=== PATIENT | male | born 1985 | race Caucasian/White ===

== ENCOUNTER 2017-07-11 19:02 | Emergency (ER) | payer BC ==
[2017-07-11 20:02] VITALS: BP 124/77
[2017-07-11] MEDS ORDERED: Albuterol HFA INHALER* 8 gm MDI INH ONE (20:43)
--- NOTE | 2017-07-11 22:42 | UC ---
Respiratory Complaint HPI - HPI Summary HPI Summary: 31 y/o male with no PMH, no medications who presents with increased shortness of breath, difficulty breathing x 1 week. daughter with similar symptoms, dx'd with allergies. Patient states dry cough, no fever, chills, no N/V abdominal pain, ? decreased appetite. 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 symptoms increasing. - History of Current Complaint Chief Complaint: UCGeneralIllness Stated Complaint: COUGH Time Seen by Provider: 07/11/17 20:27 Hx Obtained From: Patient Onset/Duration: Gradual Onset, Lasting Weeks Timing: Constant Severity Initially: Moderate Severity Currently: Moderate Pain Intensity: 0 Pain Scale Used: 0-10 Numeric - Allergies/Home Medications Allergies/Adverse Reactions: Allergies Allergy/AdvReac Type Severity Reaction Status Date / Time No Known Allergies Allergy Verified 07/11/17 20:02 Home Medications: Home Medications Pseudoephedrine-Guaifenesin [Mucinex D] 2 tab PO ONCE PRN 07/11/17 [History Confirmed 07/11/17] PMH/Surg Hx/FS Hx/Imm Hx Previously Healthy: Yes Other History Of: Negative For: HIV, Hepatitis B, Hepatitis C - Surgical History Surgical History: None Surgery Procedure, Year, and Place: VASECTOMY - Family History Known Family History: Negative: Cardiac Disease, Renal Disease - Social History Alcohol Use: Occasionally Substance Use Type: None Smoking Status (MU): Never Smoked Tobacco Review of Systems Respiratory: Shortness Of Breath, Cough All Other Systems Reviewed And Are Negative: Yes Physical Exam Triage Information Reviewed: Yes Appearance: No Pain Distress, Well-Nourished, Ill-Appearing - mild Vital Signs: Initial Vital Signs Temp 98.7 F 07/11/17 19:57 Pulse 85 07/11/17 19:57 Resp 16 07/11/17 19:57 BP 124/77 07/11/17 19:57 Pulse Ox 99 07/11/17 19:57 Vital Signs Reviewed: Yes Eyes: Positive: Conjunctiva Clear ENT: Positive: Pharyngeal erythema - minimal, TMs normal - cermun impaction R ear, currette gross amount however unable to visualize fully. No pain/ tenderness with currette. Neck: Positive: Supple, Nontender, No Lymphadenopathy Respiratory: Positive: Normal breath sounds, No respiratory distress, No accessory muscle use, Crackles, Wheezing, Other: - Rhonchi and wheezing, worse with expiration, L>R. Cardiovascular: Positive: RRR, No Murmur, Pulses Normal Neurological Exam: Normal Psychological Exam: Normal UC Diagnostic Evaluation - Laboratory O2 Sat by Pulse Oximetry: 99 Respiratory Course/Dx - Course Course Of Treatment: albuterol inhaler given, qvar steroid inhaor given, cough drops. tylenol/motrin as needed for pain, chills. - Differential Dx/Diagnosis Differential Diagnosis/HQI/PQRI: Aspiration, Bronchitis, Laryngitis, Lower Resp Infection, Pulmonary Embolism Provider Diagnoses: viral upper respiatory infection Discharge - Discharge Plan Condition: Good Disposition: HOME Prescriptions: Albuterol HFA INHALER* [Ventolin HFA Inhaler*] 1 puff INH Q4H PRN #1 mdi PRN Reason: Sob/Wheezing Beclomethasone 80 MCG MDI(NF) [Qvar 80 MCG MDI(NF)] 2 puff INH BID #1 mdi Dextromethorphan-Benzocaine [Cepacol Sore Throat & Cou] 1 augustus MT TID PRN #30 augustus PRN Reason: Cough Patient Education Materials: Bronchospasm (ED), Wheezing (ED) Referrals: Luis Osorio MD [Primary Care Provider] - Additional Instructions: - Albuterol for shortness of breath - Qvar inhaler to decrease inflammation - cough drops for cough symptoms - Increase fluids - Follow up with primary if no improvement within 2-3 days
== END 2017-07-11 20:59 | disposition home or self-care (01) ==
LOC: UCCORT 19:02
DX: J06.9 Acute upper respiratory infection, unspecified (principal)
CPT/HCPCS: 99212; A9270-GY; G0463